=== PATIENT | male | born 2000 | race Two or more races ===

== ENCOUNTER 2023-12-05 06:22 | Emergency (ER) | payer MEDICAID ==
[~2023-12-05] VITALS: Ht 175.3 cm; Wt 85.9 kg
[2023-12-05 07:15] VITALS: BP 116/56; PULSE 65; RESP 17; TEMP 97.7; O2SAT 95
[2023-12-05] MEDS ORDERED: AUG875T PO (07:25)
[2023-12-05] MEDS ORDERED: NABU-72 PO (07:25)
== END 2023-12-05 07:27 | disposition home or self-care (01) ==
LOC: ER 06:22
DX: H66.92 Otitis media, unspecified, left ear (principal); R07.0 Pain in throat; Z79.899 Other long term (current) drug therapy